=== PATIENT | male | born 1940 | race Caucasian/White ===

== ENCOUNTER 2016-09-19 08:40 | Emergency (ER) | payer MEDICARE, OTHER ==
[2016-09-19] MEDS ORDERED: METHYLPREDNISOLONE PF 125MG/VIAL IVP ONE (09:33)
[2016-09-19] MEDS ORDERED: IPRATROPIUM/ALBUTEROL (0.5MG/3MG) NEB INH ONE (09:33)
--- NOTE | 2016-09-19 09:41 | Emergency Department Record ---
History of Present Illness - General Chief Complaint: Shortness of breath Stated Complaint: SHABANA Time Seen by Provider: 09/19/16 09:28 Source: Patient Mode of Arrival: Ambulatory Limitations: No limitations - History of Present Illness Initial Comments: pt has had a prod cough and sob and congestion for 3 days. he had a houseguest earlier in the week who was sick. pt has been wheezing MD Complaint: Cough, Shortness of breath Onset/Timin -: Days(s) Severity: Mild Consistency: Intermittent Improves With: Bronchodilators, Medication Worsens With: Lying flat Known History Of: COPD Associated Symptoms: Cough, Sputum production Treatments Prior to Arrival: Bronchodilator Treatment Prior to Arrival Comment:: Sharath Monsalveair - Related Data Home Oxygen Therapy: No Home Medications Medication Instructions Recorded Confirmed Last Taken Amlodipine Besylate [Norvasc] 1 tab PO DAILY 08/17/15 09/19/16 09/19/16 Ascorbic Acid [Vitamin C] 500 mg PO DAILY 08/17/15 09/19/16 09/19/16 Aspirin [Adult Low Dose Aspirin EC] 81 mg PO DAILY 08/17/15 09/19/16 09/19/16 Cholecalciferol (Vitamin D3) 1,000 unit PO DAILY 08/17/15 09/19/16 09/19/16 [Vitamin D] Fluticasone/Salmeterol [Advair 1 puff INH BID 08/17/15 09/19/16 09/19/16 100-50 Diskus] Gluc/Tyree-MSM#1/C/Juice/Cory/Bor 2 tab PO DAILY 08/17/15 09/19/16 09/19/16 [Osteo Bi-Flex] Losartan/Hydrochlorothiazide 1 tab PO DAILY 08/17/15 09/19/16 09/19/16 [Losartan-Hctz 50-12.5 mg Tab] Meclizine HCl [Antivert] 25 mg PO TID PRN 08/17/15 09/19/16 09/19/16 Metoprolol Tartrate [Metoprolol 1 tab PO BID 08/17/15 09/19/16 09/19/16 Tartrate] Pantoprazole Sodium [Protonix] 40 mg PO BID 08/17/15 09/19/16 09/19/16 Pyridoxine HCl [Vitamin B-6] 100 mg PO DAILY 08/17/15 09/19/16 09/19/16 Rosuvastatin Calcium [Crestor] 1 tab PO QHS 08/17/15 09/19/16 09/19/16 Tadalafil [Cialis] 20 mg PO ASDIR 08/17/15 09/19/16 09/19/16 Ipratropium/Albuterol Sulfate 1 - 2 puff IH QID 09/19/16 09/19/16 09/19/16 [Combivent] Previous Rx's Medication Instructions Recorded Azithromycin [Zithromax] 250 mg PO DAILY #6 tab 09/19/16 Benzonatate [Tessalon] 1 cap PO Q8H PRN #10 cap 09/19/16 Prednisone [Prednisone 20Mg] 20 mg PO BID #8 tab 09/19/16 Allergies Allergy/AdvReac Type Severity Reaction Status Date / Time aspirin [ASPIRIN] AdvReac Intermediate ABDOMINAL Verified 09/19/16 09:12 PAIN ketorolac tromethamine AdvReac Intermediate ABDOMINAL Verified 09/19/16 09:12 [From Toradol] PAIN meperidine [MEPERIDINE] AdvReac Intermediate ABDOMINAL Verified 09/19/16 09:12 PAIN Travel Screening - Travel/Exposure Within Last 30 Days Have you traveled within the last 30 days?: No Review of Systems Reviewed: No additional complaints except as noted below Constitutional: Reports: As per HPI. Denies: Chills, Fever, Malaise, Night sweats, Weakness, Weight change Eyes: Reports: As per HPI. Denies: Eye discharge, Eye pain, Photophobia, Vision change ENT: Reports: As per HPI. Denies: Congestion, Dental pain, Ear pain, Epistaxis , Hearing loss, Throat pain Respiratory: Reports: As per HPI. Denies: Cough, Dyspnea, Hemoptysis, Stridor, Wheezes Cardiovascular: Reports: As per HPI. Denies: Arrhythmia, Chest pain, Dyspnea on exertion, Edema, Murmurs, Orthopnea, Palpitations, Paroxysmal nocturnal dyspnea, Rheumatic Fever, Syncope Endocrine: Reports: As per HPI. Denies: Fatigue, Heat or cold intolerance, Polydipsia, Polyuria Gastrointestinal: Reports: As per HPI. Denies: Abdominal pain, Constipation, Diarrhea, Hematemesis, Hematochezia, Melena, Nausea, Vomiting Genitourinary: Reports: As per HPI. Denies: Dysuria, Frequency, Hematuria, Incontinence, Retention, Testicular pain, Testicular mass, Urgency Musculoskeletal: Reports: As per HPI. Denies: Arthralgia, Back pain, Gout, Joint swelling, Myalgia, Neck pain Skin: Reports: As per HPI. Denies: Bruising, Change in color, Change in hair/ nails, Lesions, Pruritus, Rash Neurological: Reports: As per HPI. Denies: Abnormal gait, Confusion, Headache, Numbness, Paresthesias, Seizure, Tingling, Tremors, Vertigo, Weakness Psychiatric: Reports: As per HPI. Denies: Anxiety, Auditory hallucinations, Depression, Homicidal thoughts, Suicidal thoughts, Visual hallucinations Hematological/Lymphatic: Reports: As per HPI. 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 Dad- Plastic Anemia Hx Cancer: Brother/Sister Physical Exam - General General Appearance: Alert, Oriented x3, Cooperative, Mild distress - Head Head exam: Normal inspection - Eye Eye exam: Normal appearance, PERRL, EOMI Pupils: Normal accommodation - ENT ENT exam: Normal exam, Mucous membranes moist, Normal external ear exam, Normal orophraynx Ear exam: Normal external inspection. negative: External canal tenderness Nasal Exam: Normal inspection. negative: Discharge, Sinus tenderness Mouth exam: Normal external inspection, Tongue normal Teeth exam: Normal inspection. negative: Dental caries Throat exam: Normal inspection. negative: Tonsillar erythema, Tonsillar exudate - Neck Neck exam: Normal inspection, Full ROM. negative: Tenderness - Respiratory Respiratory exam: Respiratory distress, Wheezes - Cardiovascular Cardiovascular Exam: Regular rate, Normal rhythm, Normal heart sounds - GI/Abdominal GI/Abdominal exam: Soft, Normal bowel sounds. negative: Tenderness - Rectal Rectal exam: Deferred - exam: Deferred - Extremities Extremities exam: Normal inspection, Full ROM, Normal capillary refill. negative: Tenderness - Back Back exam: Reports: Normal inspection, Full ROM. Denies: Muscle spasm, Rash noted, Tenderness - Neurological Neurological exam: Alert, CN II-XII intact, Normal gait, Oriented X3 - Psychiatric Psychiatric exam: Normal affect, Normal mood - Skin Skin exam: Dry, Intact, Normal color, Warm Course Vital Signs 09/19/16 09:03 Temperature 98.3 F Pulse Rate 95 H Respiratory 20 Rate Blood Pressure 140/100 Pulse Ox 95 Medical Decision Making - Management Options MDM Management: No Additional Work-up Planned - Data Complexity MDM Data: Labs Ordered and/or Reviewed, X-Ray Ordered and/or Reviewed - Lab Data Result diagrams: 09/19/16 10:09 09/19/16 10:09 Disposition Disposition: Discharge Clinical Impression: Bronchitis Disposition: Home, Self-Care Condition: (1) Good Instructions: Acute Bronchitis (ED) Additional Instructions: follow up with family doctor. return sooner if worse. Prescriptions: Prednisone [Prednisone 20Mg] 20 mg PO BID #8 tab Benzonatate [Tessalon] 1 cap PO Q8H PRN #10 cap PRN Reason: Cough Azithromycin [Zithromax] 250 mg PO DAILY #6 tab Forms: Patient Portal Access
[2016-09-19 10:14] LABS: BASO % 0.3 % (0-6); EOS % 2.4 % (0-6); GRAN % 64.7 % (47-80); HEMATOCRIT 48.3 % (42.0-52.0); HEMOGLOBIN 15.7 gm/dl (14.0-18.0); LYMPH % 22.4 % (16-45); MEAN CELL VOLUME 89.3 fl (81-97); MEAN CORPUSCULAR HGB CONC 32.5 g/dl (32-36); MEAN PLATELET VOLUME 9.5 fl (7.4-10.4); MONO % 10.2 % (0-9); PLATELET COUNT 184 K/uL (130-400); RED BLOOD COUNT 5.41 M/uL (4.40-5.70); RED CELL DISTRIBUTION WIDTH 15.2 % (11.5-14.5); WHITE BLOOD COUNT W/O DIFF 7.8 K/uL (4.2-12.2)
[2016-09-19 10:25] LABS: BLOOD UREA NITROGEN 16 mg/dL (9-20); CREATININE 1.2 mg/dL (0.66-1.25); EST GLOMERULAR FILTRATION RATE > 60 ml/min; GLUCOSE,RANDOM 105 mg/dL (70-110)
[2016-09-19 10:29] LABS: INFLUENZA A NEGATIVE (NEGATIVE); INFLUENZA B NEGATIVE (NEGATIVE)
[2016-09-19] MEDS ORDERED: ALBUTEROL SULFATE (0.083%) 2.5 MG/3 ML NEB INH ONE (11:38)
--- NOTE | 2016-09-23 11:38 | RADIOLOGY REPORT ---
EXAM: CHEST, TWO VIEWS HISTORY: ACUTE NONPRODUCTIVE COUGH AND WHEEZING. TECHNIQUE: Two views of the chest were obtained. Comparison: Chest x-ray 08/17/15. Chest CT 03/26/15. FINDINGS: Surgical clips overlie the left mediastinum/hilum. Volume loss on the left. The right lung is clear. The cardiac silhouette is not enlarged. The diaphragm is unremarkable. Osteopenia with at least two mild compression deformities in the mid to lower thoracic spine. IMPRESSION: POSTOPERATIVE CHANGE WITHIN THE LEFT HEMITHORAX. NO ACUTE PROCESS. JOB NUMBER: [id number] [facility]
== END 2016-09-19 12:15 | disposition home or self-care (01) ==
LOC: ER 08:40
DX: J20.9 Acute bronchitis, unspecified (principal); I10 Essential (primary) hypertension; Z87.891 Personal history of nicotine dependence
CPT/HCPCS: 71020; 80048; 85025; 87400; 94640; 96374; 99284; J2930; J7613

== ENCOUNTER 2016-10-08 12:01 | Day surgery (SDC) | payer MEDICARE, OTHER ==
[~2016-10-08 12:01] MED LIST: ACETAMINOPHEN 1000MG/100 ML PREMIX IV ONE; FAMOTIDINE 20MG TABLET PO ONE; MECLIZINE 25 MG TABLET PO ONE; METOCLOPRAMIDE 10 MG TABLET PO ONE
[2016-10-08] MEDS ORDERED: SCOPOLAMINE 1 PATCH TDSY TD ONE (14:00)
[2016-10-08] MEDS ORDERED: FENTANYL PF 100MCG/2ML VIAL IV ONE (14:00)
[2016-10-08] MEDS ORDERED: LIDOCAINE 2% MDV (20MG/ML) 20ML VIAL IV ONE (14:00)
[2016-10-08] MEDS ORDERED: PROPOFOL 10 MG/ML VIAL IV ONE (14:00)
[2016-10-08] MEDS ORDERED: MIDAZOLAM HCL 2MG/2ML VIAL IV ONE (14:00)
[2016-10-08] MEDS ORDERED: BUPIVACAINE 0.25% W/EPI MPF 30ML VIAL IVP ONE (14:00)
[2016-10-08] MEDS ORDERED: ONDANSETRON HCL IV 4 MG/2 ML VIAL IVP ONE (14:00)
[2016-10-08] MEDS ORDERED: DEXAMETHASONE 4 MG/ML 1ML VIAL IVP ONE (14:00)
[2016-10-08] MEDS ORDERED: SEVOFLURANE 250 ML INH ONE (14:00)
--- NOTE | 2016-10-12 17:29 | Operative Note ---
DATE OF SURGERY: 10/08/2016 Surgeon: Juan Ramon Morgan DO Referring physician: Nik Qureshi DO PREOPERATIVE DIAGNOSES: 1. Torn medial meniscus of the right knee. 2. Chondromalacia of the right knee. POSTOPERATIVE DIAGNOSES: 1. Torn medial and lateral meniscus of the right knee. 2. Chondromalacia of the medial femoral condyle, lateral femoral condyle, trochlea and patella left knee. OPERATION: Anesthesia: General. PROCEDURE: This 76-year-old male was taken to the operating room and placed in the supine position on the operating room table. General anesthesia was induced. The right lower extremity was elevated, exsanguinated and the tourniquet inflated at 300 mmHg, arthroscopic knee-segundo applied. The right knee prepped with Hibiclens and draped in the usual sterile fashion. An inferior lateral portal was established with the 4 mm arthroscope. Initial evaluation of the joint demonstrated grade 2 chondromalacia of the patella with no gross instability of the articular cartilage of the patella, however, the trochlea demonstrated advanced grade 3 changes noted throughout the entire articulating surface. No normal articular cartilage was present in the trochlea. It was not grossly unstable and it was not further disturbed. We then directed our attention to the medial compartment and a complex horizontal cleavage tear was identified of the posterior horn of the medial meniscus with the apex being at approximately the 12 o'clock position. We then resected back to the apex of the tear and tapered in each direction to restore stability; re-probing confirmed restored stability. The patient also had a grade 3 chondromalacia of the entire weightbearing surface of the medial femoral condyle with more than 50% articular cartilage loss noted there. We then directed our attention to the intracondylar notch which was seen to be essentially normal. The lateral compartment was entered and complex tear of the lateral meniscus was present. This tear had both radial and horizontal cleavage components, with the apex of the tear being at approximately the 9:30 position, we resected to the apex of the tear and tapered in each direction. As we came anteriorly we could see there was a horizontal cleavage split and the unstable fragments of the meniscus were resected and posteriorly we resected back to about the 1 o'clock position, but this did not injure the popliteal hiatus. Degenerative changes of the meniscus were also noted with some fatty infiltration. The meniscus was probed and then found to be stable. The patient had a relatively small lesion in the center of the weightbearing surface of the lateral femoral condyle, which was less than 1 cm and had grade 2 changes, but no gross instability of this cartilage was present and it was not further disturbed. The joint was then copiously irrigated and suctioned, removing all meniscal chips from the joint and the joint was suctioned. The instruments were removed, the portals infiltrated, with 0.25% Marcaine with epinephrine, sterile dressings applied. Tourniquet and knee-segundo released, and the patient taken to the recovery room in satisfactory condition. GROSS PATHOLOGY: This patient demonstrated advanced degenerative disease of the medial femoral condyle and trochlea as described above. A complex tear of both the medial and the lateral meniscus were present as described. AVAD
== END 2016-10-08 15:35 | disposition home or self-care (01) ==
LOC: SUR 12:01
PROVIDERS: ATTEND Orthopaedic Surgery
DX: M23.221 Derangement of posterior horn of medial meniscus due to old tear or injury, right knee (principal); M23.200 Derangement of unspecified lateral meniscus due to old tear or injury, right knee; I10 Essential (primary) hypertension; E78.00 Pure hypercholesterolemia, unspecified; I48.91 Unspecified atrial fibrillation; Z85.118 Personal history of other malignant neoplasm of bronchus and lung
CPT/HCPCS: 29880; 01400; J2405; J3010

== ENCOUNTER 2019-03-06 09:21 | Day surgery (SDC) | payer MEDICARE, OTHER ==
[2019-03-06] MEDS ORDERED: LIDOCAINE 2% MDV (20MG/ML) 20ML VIAL IV ONE (09:22)
[2019-03-06] MEDS ORDERED: PROPOFOL 10 MG/ML VIAL IV ONE (09:22)
[2019-03-06] MEDS ORDERED: ONDANSETRON HCL IV 4 MG/2 ML VIAL IVP ONE (09:22)
--- NOTE | 2019-03-08 10:42 | Operative Note ---
OPERATION: COLONOSCOPY to the cecum with cold biopsy forceps polypectomy x1 and cold snare polypectomy x1. INDICATION: History of adenomatous polyps. The patient returns after 5 years for surveillance. ANESTHESIA: Intravenous sedation was administered by the department of anesthesiology and included Diprivan titrated to effect. PROCEDURE: Following informed consent from this alert individual including a discussion of the risks and benefits of the procedure and an opportunity for the patient to ask questions, the patient was in the left lateral decubitus position. A digital rectal examination was performed. No abnormalities were noted. Following this, the Olympus [id number] video colonoscope was inserted into the rectum without resistance. The rectal mucosa had a normal appearance with normal folds and distensibility. The colonoscope was advanced up through the colon to the level of the cecum without much difficulty. Throughout the bowel the mucosa appeared normal, the folds were normal, and the bowel was fairly well distensible. There were 2 polyps noted in the transverse colon. The smaller polyp measured 3 mm in size and was removed with biopsy forceps. There was a 6 mm polyp noted as well in the transverse colon removed with cold snare polypectomy and suctioned through the colonoscope into a collection trap. The cecum was defined by noting the appendiceal orifice and ileocecal valve. Overall, the colon preparation was good. From the base of the cecum, the colonoscope was then withdrawn. No additional changes were appreciated. No additional polyps were seen. Retroflexion in the rectum was endoscopically normal. The instrument was straightened and removed. The patient tolerated the procedure well and was returned to the recovery area in stable condition. IMPRESSION: Two transverse colon polyps noted. The small on measuring 3 mm in size was removed with cold biopsy forceps polypectomy and the larger polyp measuring 6 mm in size was removed with cold snare polypectomy. RECOMMENDATIONS: Further recommendations will be forthcoming pending results of pathology obtained today. Followup will also be with primary care physician, Nik Qureshi DO. As always, thank you for allowing me to participate in the care of your patient. KARLI
== END 2019-03-06 11:45 | disposition home or self-care (01) ==
LOC: HOP 09:21
PROVIDERS: ATTEND Internal Medicine Gastroenterology
DX: Z12.11 Encounter for screening for malignant neoplasm of colon (principal); Z86.010 Personal history of colon polyps; D12.3 Benign neoplasm of transverse colon; I10 Essential (primary) hypertension; E78.00 Pure hypercholesterolemia, unspecified; J44.9 Chronic obstructive pulmonary disease, unspecified; R42 Dizziness and giddiness; R06.00 Dyspnea, unspecified
CPT/HCPCS: 45380; 45385; 00811; 88305; J2405

== ENCOUNTER 2019-03-07 12:44 | Observation (INO) | payer MEDICARE, OTHER ==
[2019-03-07] MEDS ORDERED: ASPIRIN 81 MG CHEWABLE TABLET PO ONE (13:01)
[2019-03-07] MEDS ORDERED: NITROGLYCERIN 0.4MG SL TABLET #25 BTL SL PRN (13:01)
[2019-03-07] MEDS ORDERED: 0.9 % SODIUM CHLORIDE 1000ML 1,000 ML IV ONE (13:01)
--- NOTE | 2019-03-07 13:08 | Emergency Department Record ---
History of Present Illness - General Chief Complaint: Chest Pain Stated Complaint: CHEST PAIN Time Seen by Provider: 03/07/19 13:01 Source: Patient, Family () Mode of Arrival: Ambulatory Limitations: No limitations - History of Present Illness Initial Comments: Pt to the ED from home with for mid sternal CP onset 20 min [employer]. Pain is "sharp and 9 of 10", no associated SHABANA, nausea, diaphoresis. No radiation of pain ot back, neck, or arm. Hx of HTN and cholesterol on meds, no DM or tobacco use. No hx DVT/PE or risk factors. Pt states on arrival feeling better with pain at "3 of 10". No treatment prior to arrival, no meds or ASA. Pt has hx of cardiac dysrhythmia in the past but no OK or angina. No recent illness, fever, cough, N/V. Had a screening colonoscopy yesterday without issue. Colon prep was not an issue. No abdominal pains. Onset/Timin -: Minutes(s) Pain Location: Substernal Pain Radiation: None Severity: Mild Severity scale (1-10): 3 Quality: Aching, Dull Improves With: Nothing Worsens With: Nothing Treatments Prior to Arrival: None - Related Data Previous Rx's Medication Instructions Recorded Azithromycin [Zithromax] 250 mg PO DAILY #6 tablet 09/25/17 Allergies Allergy/AdvReac Type Severity Reaction Status Date / Time aspirin [ASPIRIN] AdvReac Intermediate ABDOMINAL Verified 03/07/19 12:55 PAIN ketorolac tromethamine AdvReac Intermediate ABDOMINAL Verified 03/07/19 12:55 [From Toradol] PAIN meperidine [MEPERIDINE] AdvReac Intermediate ABDOMINAL Verified 03/07/19 12:55 PAIN Travel Screening - Travel/Exposure Within Last 30 Days Have you traveled within the last 30 days?: No Review of Systems Constitutional: Denies: Chills, Fever, Weakness Eyes: Denies: Eye pain, Photophobia, Vision change ENT: Denies: Congestion, Throat pain Respiratory: Denies: Cough, Dyspnea, Wheezes Cardiovascular: Reports: As per HPI, Chest pain. Denies: Arrhythmia, Palpitations, Syncope Endocrine: Denies: Fatigue, Polydipsia, Polyuria Gastrointestinal: Denies: Abdominal pain, Diarrhea, Nausea, Vomiting Genitourinary: Denies: Dysuria, Hematuria Musculoskeletal: Denies: Arthralgia, Back pain, Neck pain Skin: Denies: Bruising, Rash Neurological: Denies: Headache, Tingling, Weakness Psychiatric: Denies: Anxiety, Suicidal thoughts Hematological/Lymphatic: Denies: Anemia, Blood Clots Past Medical History - SOCIAL HISTORY Smoking Status: Former smoker Alcohol Use: None Drug Use: None - RESPIRATORY Hx Respiratory Disorders: Yes Hx Bronchitis: Yes Hx COPD: Yes (well controlled with inhalers) Hx Dyspnea: Yes Hx Pneumonia: Yes Comment:: Lung CA squamous cell 2012 - CARDIOVASCULAR Hx Cardio Disorders: Yes Hx Abnormal EKG: Yes Hx Hypertension: Yes (on meds good control) Hx Irregular Heartbeat: Yes (a-fib during lung surgery) - NEURO Hx Neuro Disorders: Yes 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) Hx Neuropathy: Yes (feet and legs) - GI Hx GI Disorders: Yes Hx GI Bleed: Yes (while on xaralto) Hx Reflux: Yes - Hx Genitourinary Disorders: Yes Hx Prostate Problems: Yes (TURP enlarged prostate) - ENDOCRINE Hx Endocrine Disorders: No Hx Diabetes: No Hx Thyroid Disease: No - MUSCULOSKELETAL Hx Musculoskeletal Disorders: Yes Hx Arthritis: Yes Comment:: right knee pain - PSYCH Hx Psych Problems: No - HEMATOLOGY/ONCOLOGY Hx Hematology/Oncology Disorders: Yes Hx Anemia: No Hx Blood Disorders: No Hx Bruising: No Hx Cancer: No (lung) Hx Chemotherapy: Yes (2012) Hx Radiation Therapy: No (denies) Hx Blood Transfusions: Yes Family Medical History Any Significant Family History?: Yes Family Hx Comment (NOT TO BE USED IN PLACE OF ITEMS BELOW): Mother- CHF. Dad- Plastic Anemia Hx Cancer: Brother/Sister Physical Exam - General General Appearance: Alert, Oriented x3, Cooperative, Mild distress - Head Head exam: Normal inspection - Eye Eye exam: Normal appearance, PERRL - ENT ENT exam: Normal exam, Mucous membranes moist, Normal external ear exam, Normal orophraynx, TM's normal bilaterally - Neck Neck exam: Normal inspection, Full ROM. negative: Tenderness - Respiratory Respiratory exam: Normal lung sounds bilaterally. negative: Respiratory distress - Cardiovascular Cardiovascular Exam: Regular rate, Normal rhythm, Normal heart sounds. negative: Diastolic murmur, Systolic murmur Peripheral Pulses: 2+: Radial (R), Radial (L) - GI/Abdominal GI/Abdominal exam: Soft, Normal bowel sounds. negative: Distended, Guarding, Hypoactive bowel sounds, Rebound, Rigid, Tenderness - Extremities Extremities exam: Normal inspection, Full ROM. negative: Calf tenderness, No rmal capillary refill, Pedal edema, Tenderness - Back Back exam: Reports: Normal inspection. Denies: Paraspinal tenderness, Vertebral tenderness - Neurological Neurological exam: Alert, Normal gait, Oriented X3 - Psychiatric Psychiatric exam: Normal affect, Normal mood - Skin Skin exam: Normal color. negative: Rash Course Vital Signs 03/07/19 12:54 Temperature 97.7 F Pulse Rate 79 Respiratory 22 Rate Blood Pressure 144/103 Pulse Ox 100 - Reevaluation(s) Reevaluation #1: 03/07/19 13:07 IV, O2, monitor. ASA and NTG in ED. Labs, Xray, and EKG. Pt and at bedside reassured with EKG results and we discussed further eval with labs. Procedures - EKG Initial Date: 03/07/19 Time: 12:44 EKG: No Acute Changes, Normal EKG Medical Decision Making - Lab Data Result diagrams: 03/07/19 12:55 03/07/19 12:55 Disposition Disposition: Admit Clinical Impression: Chest pain Disposition: Still a Patient at [facility] Decision to Admit: Admit from ER Decision to Admit Date: 03/07/19 Decision to Admit Time: 14:37 Condition: (3) Guarded Forms: Patient Portal Access Quality - Quality Measures Quality Measures: N/A - Blood Pressure Screening Does Patient Have Any of the Following: No, Active Dx of HTN Blood Pressure Classification: Hypertensive Reading Systolic Measurement: 144 Diastolic Measurement: 103 Screening for High Blood Pressure: Patient Exclusion, Hx of HTN [G9744]
[2019-03-07 13:19] LABS: ABSOLUTE NEUTROPHIL COUNT 3.84; BASO % 0.2 % (0-6); EOS % 3.5 % (0-6); GRAN % 63.7 % (47-80); HEMATOCRIT 44.8 % (42.0-52.0); HEMOGLOBIN 14.2 gm/dl (14.0-18.0); MEAN CELL VOLUME 90.7 fl (81-97); MEAN CORPUSCULAR HEMOGLOBIN 28.7 pg (27-33); MEAN CORPUSCULAR HGB CONC 31.7 g/dl (32-36); MEAN PLATELET VOLUME 9.2 fl (7.4-10.4); MONO % 6.6 % (0-9); PLATELET COUNT 288 K/uL (130-400); RED BLOOD COUNT 4.94 M/uL (4.40-5.70); RED CELL DISTRIBUTION WIDTH 16.6 % (11.5-14.5)
[2019-03-07 13:30] LABS: BLOOD UREA NITROGEN 15 mg/dL (8-23); CREATININE 1.2 mg/dL (0.7-1.2); EST GLOMERULAR FILTRATION RATE > 60 mL/min
[2019-03-07 13:31] LABS: TOTAL PROTEIN 6.9 g/dL (6.6-8.7)
[2019-03-07 13:33] LABS: GLUCOSE,RANDOM 94 mg/dL (74-109)
[2019-03-07 13:35] LABS: ALT/SGPT 16 U/L (<41); AST/SGOT 23 U/L (10.0-50.0); PARTIAL THROMBOPLASTIN TIME 28.5 SECONDS (24.5-39.1); PROTHROMBIN TIME (PATIENT) 10.5 SECONDS (9.5-12.1)
[2019-03-07 13:36] LABS: ALB/GLOB RATIO 1.6 (1.1-1.8); ALBUMIN 4.2 g/dL (4.0-5.0); ALKALINE PHOSPHATASE 82 U/L (40-129)
--- NOTE | 2019-03-07 15:31 | History & Physical ---
History of Present Illness - Date of Service Date of Service for History & Physical: 03/08/19 - History of Present Illness History of Present Illness: 79 y/o male presented to ED with midsternal chest pain 20 minutes [employer]. Pain was sharp, 9/10. No associated SHABANA, nausea, or diaphoresis. Pain did not radiate. Patients pain improved at the time of arrival to 310 without any treatment. Patient does have hx of cardiac dysrhythmia but no hx of PR or angina. Denies any recent illness. Did have a screening colonoscopy yesterday without incident, tolerated prep without issue. PMH includes former smoker, bronchitis, COPD, pneumonia, squamous cell lung ca 2012, HTN, a-fib during lung surgery, CVA, neuropathy, GI bleed while on Xarelto, GERD, enlarged prostate s/p TURP, OA While in ED ASA and Nitro given with complete resolution of chest pain. EKG with no acute changes from previous. Troponin x1 neg. D-dimer normal. Admitted for observation due to advanced age, chest pain. Last cardiolyte stress test done 03/08/18 and was normal. 03/07/19 1530- sitting in chair comfortably, no reports of chest pain at this time. Reports no recent physical activity prior to the onset of chest pain, was baking banana bread at the time. PCP: Dr Muro Telephone Claims Representative: Dr. Huston Travel Screening - Travel/Exposure Within Last 30 Days Have you traveled within the last 30 days?: No Review of Systems Constitutional: Denies: Chills, Fever, Weakness Eyes: Denies: Eye pain, Photophobia, Vision change ENT: Denies: Congestion, Throat pain Respiratory: Denies: Cough, Dyspnea, Wheezes Cardiovascular: Reports: As per HPI, Chest pain. Denies: Arrhythmia, Palpitations, Syncope Endocrine: Denies: Fatigue, Polydipsia, Polyuria Gastrointestinal: Denies: Abdominal pain, Diarrhea, Nausea, Vomiting Genitourinary: Denies: Dysuria, Hematuria Musculoskeletal: Denies: Arthralgia, Back pain, Neck pain Skin: Denies: Bruising, Rash Neurological: Denies: Headache, Tingling, Weakness Psychiatric: Denies: Anxiety, Suicidal thoughts Hematological/Lymphatic: Denies: Anemia, Blood Clots Past Medical History - SOCIAL HISTORY Smoking Status: Former smoker Alcohol Use: None Drug Use: None - RESPIRATORY Hx Respiratory Disorders: Yes Hx Bronchitis: Yes Hx COPD: Yes (well controlled with inhalers) Hx Dyspnea: Yes Hx Pneumonia: Yes Comment:: Lung CA squamous cell 2012 - CARDIOVASCULAR Hx Cardio Disorders: Yes Hx Abnormal EKG: Yes Hx Hypertension: Yes (on meds good control) Hx Irregular Heartbeat: Yes (a-fib during lung surgery) - NEURO Hx Neuro Disorders: Yes 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) Hx Neuropathy: Yes (feet and legs) - GI Hx GI Disorders: Yes Hx GI Bleed: Yes (while on xaralto) Hx Reflux: Yes - Hx Genitourinary Disorders: Yes Hx Prostate Problems: Yes (TURP enlarged prostate) - ENDOCRINE Hx Endocrine Disorders: No Hx Diabetes: No Hx Thyroid Disease: No - MUSCULOSKELETAL Hx Musculoskeletal Disorders: Yes Hx Arthritis: Yes Comment:: right knee pain - PSYCH Hx Psych Problems: No - HEMATOLOGY/ONCOLOGY Hx Hematology/Oncology Disorders: Yes Hx Anemia: No Hx Blood Disorders: No Hx Bruising: No Hx Cancer: No (lung) Hx Chemotherapy: Yes (2012) Hx Radiation Therapy: No (denies) Hx Blood Transfusions: Yes Family Medical History Any Significant Family History?: Yes Family Hx Comment (NOT TO BE USED IN PLACE OF ITEMS BELOW): Mother- CHF. Dad- Plastic Anemia Hx Cancer: Brother/Sister H&P Meds/Allergies - Allergies Allergies: Allergies Allergy/AdvReac Type Severity Reaction Status Date / Time aspirin [ASPIRIN] AdvReac Intermediate ABDOMINAL Verified 03/07/19 12:55 PAIN ketorolac tromethamine AdvReac Intermediate ABDOMINAL Verified 03/07/19 12:55 [From Toradol] PAIN meperidine [MEPERIDINE] AdvReac Intermediate ABDOMINAL Verified 03/07/19 12:55 PAIN - Home Medications Previous Rx's Medication Instructions Recorded Azithromycin [Zithromax] 250 mg PO DAILY #6 tablet 09/25/17 Nitroglycerin 0.4MG [Nitrostat 0.4 mg SL Q5MIN PRN #1 bottle 03/08/19 0.4MG] - Active Medications Active Medications: Current Medications Sodium Chloride () 1,000 mls @ 15 mls/hr IV .Q24H ONE Stop: 03/08/19 13:00 Last Admin: 03/07/19 13:29 Dose: 15 mls/hr Documented by: Nitroglycerin (Nitrostat 0.4mg) 0.4 mg SL Q5MIN PRN PRN Reason: CHEST PAIN Last Admin: 03/07/19 13:05 Dose: 0.4 mg Documented by: Physical Exam - Vital Signs Vital Signs: Vital Signs - Last 24 Hrs Temp Pulse Pulse Resp BP BP Pulse Ox 03/07/19 14:47 62 18 104/71 96 03/07/19 13:12 85 18 109/72 94 L 03/07/19 13:05 80 18 135/82 94 L 03/07/19 12:54 97.7 F 79 22 144/103 100 - General General Appearance: Alert, Oriented x3, Cooperative Limitations: No limitations - Head Head exam: Normal inspection - Eye Eye exam: Normal appearance, PERRL - ENT ENT exam: Normal exam, Mucous membranes moist, Normal external ear exam, Normal orophraynx, TM's normal bilaterally - Neck Neck exam: Normal inspection, Full ROM. negative: Tenderness - Respiratory Respiratory exam: Normal lung sounds bilaterally. negative: Respiratory distress - Cardiovascular Cardiovascular Exam: Regular rate, Normal rhythm, Normal heart sounds. negat yoan: Diastolic murmur, Systolic murmur Peripheral Pulses: 2+: Radial (R), Radial (L) - GI/Abdominal GI/Abdominal exam: Soft, Normal bowel sounds. negative: Distended, Guarding, Hypoactive bowel sounds, Rebound, Rigid, Tenderness - Extremities Extremities exam: Normal inspection, Full ROM. negative: Calf tenderness, Normal capillary refill, Pedal edema, Tenderness - Back Back exam: Reports: Normal inspection. Denies: Paraspinal tenderness, Vertebral tenderness - Neurological Neurological exam: Alert, Normal gait, Oriented X3 - Psychiatric Psychiatric exam: Normal affect, Normal mood - Skin Skin exam: Normal color. negative: Rash Results - Labs Result Diagrams: 03/08/19 05:00 03/08/19 05:00 Labs Last 24 Hours: Laboratory Results - last 24 hr 03/07/19 03/07/19 03/07/19 12:55 12:55 12:55 WBC 6.0 RBC 4.94 Hgb 14.2 Hct 44.8 MCV 90.7 MCH 28.7 MCHC 31.7 L RDW 16.6 H Plt Count 288 MPV 9.2 Gran % 63.7 Lymphocytes % 26.0 Monocytes % 6.6 Eosinophils % 3.5 Basophils % 0.2 Absolute Neutrophils 3.84 PT 10.5 INR 1.0 APTT 28.5 D-Dimer 0.47 Sodium 141 Potassium 4.4 Chloride 103 Carbon Dioxide 28.0 Anion Gap 10.0 BUN 15 Creatinine 1.2 Estimated GFR > 60 Random Glucose 94 Calcium 9.3 Total Bilirubin 0.30 AST 23 ALT 16 Alkaline Phosphatase 82 Troponin T < 0.010 NT-Pro-B Natriuret Pep 100.30 Total Protein 6.9 Albumin 4.2 Globulin 2.7 Albumin/Globulin Ratio 1.6 VTE H&P Assessment - Risk for VTE Risk for VTE: Yes Risk Level: Low Risk Assessment Date: 03/07/19 Risk Assessment Time: 15:31 VTE Orders Placed or Will Be Placed: Yes AMI H&P Plan - EKG Initial Date: 03/07/19 Time: 12:44 EKG: No Acute Changes, Normal EKG Plan - Detailed Diagnosis and Plan (1) Chest pain Current Visit: Yes Status: Acute Base Code: R07.9 - CHEST PAIN, UNSPECIFIED Comment: 03/07/19 - midsternal chest pain, non radiating, relieved with ASA and nitro in ED - Hx a-fib during surgery 2012, HTN - Troponin #1 neg - EKG in ED without acute changes from previous (2) HTN (hypertension) Current Visit: Yes Status: Acute Base Code: I10 - ESSENTIAL (PRIMARY) HYPERTENSION Comment: 03/07/19 - BP elevated in ED (3) DVT prophylaxis Current Visit: Yes Status: Acute Base Code: Z29.9 - ENCOUNTER FOR P ROPHYLACTIC MEASURES, UNSPECIFIED Comment: 03/07/19 - contraindicated 2/2 hx GI bleed with Xarelto - Nursing to encourage frequent ambulation (4) Full code status Current Visit: Yes Status: Acute Base Code: Z78.9 - OTHER SPECIFIED HEALTH STATUS
[2019-03-07] MEDS: IPRATROPIUM/ALBUTEROL (0.5MG/3MG) NEB INH SCH ×3 (16:42→21:24)
[2019-03-07] MEDS: PANTOPRAZOLE SODIUM 40 MG TABLET PO SCH (17:25)
[2019-03-07] MEDS ORDERED: ATORVASTATIN 20 MG TABLET PO SCH (22:00)
[2019-03-07] MEDS ORDERED: METOPROLOL TART 50 MG TABLET PO SCH (22:00)
[2019-03-08] MEDS: IPRATROPIUM/ALBUTEROL (0.5MG/3MG) NEB INH SCH (05:09)
[2019-03-08 05:13] LABS: ABSOLUTE NEUTROPHIL COUNT 3.96; BASO % 0.3 % (0-6); EOS % 4.3 % (0-6); HEMOGLOBIN 13.1 gm/dl (14.0-18.0); LYMPH % 24.5 % (16-45); MEAN CELL VOLUME 91.1 fl (81-97); MEAN CORPUSCULAR HEMOGLOBIN 28.4 pg (27-33); MEAN CORPUSCULAR HGB CONC 31.2 g/dl (32-36); MONO % 7.9 % (0-9); PLATELET COUNT 217 K/uL (130-400); RED BLOOD COUNT 4.61 M/uL (4.40-5.70); RED CELL DISTRIBUTION WIDTH 16.4 % (11.5-14.5); WHITE BLOOD COUNT W/O DIFF 6.3 K/uL (4.2-12.2)
[2019-03-08 05:25] LABS: BLOOD UREA NITROGEN 19 mg/dL (8-23); CREATININE 1.2 mg/dL (0.7-1.2); EST GLOMERULAR FILTRATION RATE > 60 mL/min; GLUCOSE,RANDOM 97 mg/dL (74-109)
[2019-03-08] MEDS: PANTOPRAZOLE SODIUM 40 MG TABLET PO SCH (06:28)
--- NOTE | 2019-03-08 07:56 | RADIOLOGY REPORT ---
EXAM: CHEST, TWO VIEWS HISTORY: PATIENT HAS CHEST PAIN. TECHNIQUE: Two views of the chest are provided along with comparison CT scan of the chest dated 10/19/18 and chest x-ray dated 09/25/17. FINDINGS: The cardiac silhouette is within normal limits for size and contour. Tortuosity of the thoracic aorta is noted. Of note is that there is a density identified within the right paratracheal region, however, I suspect that this is likely normal tissue which is superimposed due to the patient rotation. There is no radiographic evidence of a focal infiltrate or pleural effusion. No pneumothorax is noted. Postoperative changes are identified in the region of the left hilum. Compression deformity of the lower thoracic vertebral body is unchanged with respect to the prior examinations. IMPRESSION: NO RADIOGRAPHIC EVIDENCE OF AN ACUTE INTRATHORACIC PROCESS. JOB NUMBER: [id number] [facility]
--- NOTE | 2019-03-08 08:26 | Discharge Summary ---
Providers Discharge Summary Date: 03/08/19 Date of admission: 03/07/19 15:20 Attending physician: ASMITA VÁSQUEZ Primary care physician: SESAR DAVIDSON D.O. Physical Exam - Vital Signs Vital Signs: Vital Signs - Last 24 Hrs Temp Pulse Pulse Pulse Resp BP BP 03/08/19 07:48 97.9 F 73 16 171/91 03/08/19 05:09 85 18 03/08/19 05:00 97.9 F 76 18 167/82 03/08/19 00:25 97.9 F 72 18 124/78 03/07/19 21:24 81 16 03/07/19 21:00 68 16 03/07/19 20:16 98.1 F 68 16 138/67 03/07/19 17:56 98.5 F 73 18 132/74 03/07/19 17:01 77 16 03/07/19 15:30 98.6 F 68 16 173/82 03/07/19 14:47 62 18 104/71 03/07/19 13:12 85 18 109/72 03/07/19 13:05 80 18 135/82 03/07/19 12:54 97.7 F 79 22 144/103 Pulse Ox 03/08/19 07:48 98 03/08/19 05:09 98 03/08/19 05:00 98 03/08/19 00:25 96 03/07/19 21:24 03/07/19 21:00 03/07/19 20:16 95 03/07/19 17:56 98 03/07/19 17:01 03/07/19 15:30 99 03/07/19 14:47 96 03/07/19 13:12 94 L 03/07/19 13:05 94 L 03/07/19 12:54 100 - General General Appearance: Alert, Oriented x3, Cooperative Limitations: No limitations - Head Head exam: Normal inspection - Eye Eye exam: Normal appearance, PERRL - ENT ENT exam: Normal exam, Mucous membranes moist, Normal external ear exam, Normal orophraynx, TM's normal bilaterally - Neck Neck exam: Normal inspection, Full ROM. negative: Tenderness - Respiratory Respiratory exam: Normal lung sounds bilaterally. negative: Respiratory distress - Cardiovascular Cardiovascular Exam: Regular rate, Normal rhythm, Normal heart sounds. negative: Diastolic murmur, Systolic murmur Peripheral Pulses: 2+: Radial (R), Radial (L) - GI/Abdominal GI/Abdominal exam: Soft, Normal bowel sounds. negative: Distended, Guarding, Hypoactive bowel sounds, Rebound, Rigid, Tenderness - Extremities Extremities exam: Normal inspection, Full ROM. negative: Calf tenderness, Normal capillary refill, Pedal edema, Tenderness - Back Back exam: Reports: Normal inspection. Denies: Paraspinal tenderness, Vertebral tenderness - Neurological Neurological exam: Alert, Normal gait, Oriented X3 - Psychiatric Psychiatric exam: Normal affect, Normal mood - Skin Skin exam: Normal color. negative: Rash Hospitalization - Hospitalization Admission Diagnosis: Chest Pain - Problem List/Discharge Diagnosis (1) Chest pain Current Visit: Yes Status: Acute Base Code: R07.9 - CHEST PAIN, UNSPECIFIED Comment: 03/08/19 - midsternal chest pain, non radiating, relieved with ASA and nitro in ED - Hx a-fib during surgery 2012, HTN - Troponin #1, #2 neg - EKG in ED without acute changes from previous - Tele has remained NSR - No further complaints of chest pain - Cardiolyte stress 03/08/18, established with cardiology - Chest pain likely reflux vs. esophogeal spasm (2) HTN (hypertension) Current Visit: Yes Status: Acute Base Code: I10 - ESSENTIAL (PRIMARY) HYPERTENSION Comment: 03/08/19 - BP elevated in ED, has trended to normal after scheduled antihypertensives (3) DVT prophylaxis Current Visit: Yes Status: Acute Base Code: Z29.9 - ENCOUNTER FOR PROPHYLACTIC MEASURES, UNSPECIFIED Comment: 03/08/19 - contraindicated 2/2 hx GI bleed with Xarelto - Nursing to encourage frequent ambulation (4) Full code status Current Visit: Yes Status: Acute Base Code: Z78.9 - OTHER SPECIFIED HEALTH STATUS - Hospitalization Course Disposition: Home, Self-Care Hospital Course: 79 y/o male presented to ED with midsternal chest pain 20 minutes [employer]. Pain was sharp, 9/10. No associated SHABANA, nausea, or diaphoresis. Pain did not radiate. Patients pain improved at the time of arrival to 3/10 without any treatment. Patient does have hx of cardiac dysrhythmia but no hx of NE or angina. Denies any recent illness. Did have a screening colonoscopy yesterday without incident, tolerated prep without issue. PMH includes former smoker, bronchitis, COPD, pneumonia, squamous cell lung ca 2012, HTN, a-fib during lung surgery, CVA, neuropathy, GI bleed while on Xarelto, GERD, enlarged prostate s/p TURP, OA While in ED ASA and Nitro given with complete resolution of chest pain. EKG with no acute changes from previous. Troponin x1 neg. D-dimer normal. Admitted for observation due to advanced age, chest pain. Last cardiolyte stress test done 03/08/18 and was normal. 03/07/19 1530- sitting in chair comfortably, no reports of chest pain at this time. Reports no recent physical activity prior to the onset of chest pain, was baking banana bread at the time. 03/08/19- Hospital course unremarkable. No further chest pain, troponin x2 negative. Did have cardiolyte stress 1 year ago and was normal and is established with cardiology in the community, next follow up visit scheduled next month. Chest pain could likely have been due to reflux vs. esophageal spasm after initiating PO intake after colonoscopy. Advised to return if chest pain occurs again. Will prescribe Nitro SL for any further episodes of chest pain. PCP: Dr Muro Hhas: Dr. Huston Procedures: Imaging and X-Rays 03/07/19 13:01 CHEST 2 VIEWS [RAD] Stat Cardiology Procedures 03/07/19 13:01 EKG NOW 03/07/19 15:56 [employer] .Continuous EKG QDX2@0600 Abnormal Labs: Abnormal Lab Results 03/07/19 03/08/19 03/08/19 Range/Units 12:55 05:00 05:00 Hgb 13.1 L (14.0-18.0) gm/dl MCHC 31.7 L 31.2 L (32-36) g/dl RDW 16.6 H 16.4 H (11.5-14.5) % Calcium 8.7 L (8.8-10.2) mg/dL Condition at Discharge: (3) Guarded Discharge Medications - Discharge Medications Prescriptions: Nitroglycerin 0.4MG [Nitrostat 0.4MG] 0.4 mg SL Q5MIN PRN #1 bottle PRN Reason: Chest Pain Home Medications: Ambulatory Orders Amlodipine Besylate [Norvasc] 1 tab PO DAILY 08/17/15 [Last Taken 03/07/19] Ascorbic Acid [Vitamin C] 500 mg PO DAILY 08/17/15 [Last Taken 03/07/19] Aspirin [Adult Low Dose Aspirin EC] 81 mg PO DAILY 08/17/15 [Last Taken 03/07/19] Cholecalciferol (Vitamin D3) [Vitamin D3] 1,000 unit PO DAILY 08/17/15 [Last Taken 03/07/19] Fluticasone Propion/Salmeterol [Advair 100-50 Diskus] 1 puff INH BID 08/17/15 [Last Taken 03/07/19] Glucosam/Tyree-Msm1/C/Juice/Bosw [Osteo Bi-Flex] 2 tab PO DAILY 08/17/15 [Last Taken 03/07/19] Losartan/Hydrochlorothiazide [Losartan-Hctz 50-12.5 mg Tab] 1 tab PO DAILY 08/17/15 [Last Taken 03/07/19] Meclizine HCl [Antivert] 25 mg PO TID PRN 08/17/15 [Last Taken 03/07/19] Metoprolol Tartrate 1 tab PO BID 08/17/15 [Last Taken 03/07/19] Pantoprazole Sodium [Protonix] 40 mg PO BID 08/17/15 [Last Taken 03/07/19] Pyridoxine HCl [Vitamin B-6] 100 mg PO DAILY 08/17/15 [Last Taken 03/07/19] Rosuvastatin Calcium [Crestor] 1 tab PO QHS 08/17/15 [Last Taken 03/07/19] Ipratropium/Albuterol Sulfate [Combivent] 1 - 2 puff IH QID 09/19/16 [Last Taken 03/07/19] Azithromycin [Zithromax] 250 mg PO DAILY #6 tablet 09/25/17 [Last Taken Unknown] Nitroglycerin 0.4MG [Nitrostat 0.4MG] 0.4 mg SL Q5MIN PRN #1 bottle 03/08/19 [Last Taken Unknown] Discharge Plan - Discharge Instructions Activity at Discharge: Increase Activity as Tolerated Diet at Discharge: Advance to Usual Diet Additional Instructions: Follow up with Dr Huston as scheduled next month New prescription for Nitro given for any further episodes of chest pain Quality Measures - Quality Measures Quality Measures: Advance Directives, Documentation of Current Medications in Medical Record, Elder Maltreatment Screen and Follow-Up Plan, Screening for High Blood Pressure and F/U Documented - Current Medications Quality Measure: Measure #130: Documentation of Current Medications Documentation of Current Medications: <Current Medications Documented/Reviewed> [Z0468] - Blood Pressure Screening Quality Measure: Screening for High Blood Pressure and Follow-Up Documented Does Patient Have Any of the Following: Active Dx of HTN Blood Pressure Classification: Hypertensive Reading Systolic Measurement: 144 Diastolic Measurement: 103 Screening for High Blood Pressure: Patient Exclusion, Hx of HTN [G9744] - Advance Directives Quality Measure: Measure #47: Care Plan Advance Directives Established: No Advance Directives Information Provided To Patient: Yes Advance Directives on File: No Living Will: No Power of Head Of Business Development: Yes Power of Head Of Business Development Name: TRISTA WILKINSON Advance Care Planning: <Care Plan/Decision Maker Documented; Discussed & Documented> [1123F] - Elder Abuse Suspicion Index Screening: Elder Abuse Suspicion Index Screening Rely on people for bathing, dressing, shopping, banking, etc: No Prevented from getting food, clothes, medication, etc: No Made to feel shamed or threatened by someone: No Forced to sign papers or use money against will: No Feel afraid, touched in ways not wanted or hurt physically: No Poor eye contact, withdrawn, malnourished, cuts or bruises: No Screening Result: Negative result EASI Reference Information: Pau DE LA GARZA, Jae C, Schuyler D, Adryan Butterfield.Development and validation of a tool to assist physicians identification of elder abuse: The Elder Abuse Suspicion Index (EASI ). Journal of Elder Abuse and Neglect, 2008; 20 (3): 276-300. - Elder Maltreatment Screen Quality Measures: Elder Maltreatment Screen and Follow-Up Plan Elder Maltreatment Screen: <Negative, No Follow-Up Plan Required> [G4660]
[2019-03-08] MEDS ORDERED: LOSARTAN POTASSIUM 25 MG TABLET PO SCH (10:00)
[2019-03-08] MEDS ORDERED: ASPIRIN 81 MG TABEC PO SCH (10:00)
[2019-03-08] MEDS ORDERED: BREO (FLUTICASONE/VILANTEROL) 100MCG/25MCG INHALER INH SCH (10:00)
[2019-03-08] MEDS ORDERED: HYDROCHLOROTHIAZIDE 12.5 MG CAPSULE PO SCH (10:00)
[2019-03-08] MEDS ORDERED: AMLODIPINE BESYLATE 5MG TAB PO SCH (10:00)
== END 2019-03-08 09:10 | disposition home or self-care (01) ==
LOC: ER 12:44 → MEDSURG 15:20
PROVIDERS: ADMIT Internal Medicine; ATTEND Internal Medicine
DX: R07.9 Chest pain, unspecified (principal); J44.9 Chronic obstructive pulmonary disease, unspecified; I10 Essential (primary) hypertension; E78.00 Pure hypercholesterolemia, unspecified; G62.9 Polyneuropathy, unspecified; K21.9 Gastro-esophageal reflux disease without esophagitis; M19.90 Unspecified osteoarthritis, unspecified site; Z87.891 Personal history of nicotine dependence; Z85.118 Personal history of other malignant neoplasm of bronchus and lung; Z86.73 Personal history of transient ischemic attack (TIA), and cerebral infarction without residual deficits; N40.0 Benign prostatic hyperplasia without lower urinary tract symptoms
CPT/HCPCS: 71046; 80048; 80053; 83880; 84484; 85025; 85379; 85610; 85730; 93005; 93010; 94640; 99220; 99285

== ENCOUNTER 2019-08-01 22:37 | Emergency (ER) | payer MEDICARE, OTHER ==
[2019-08-01] MEDS ORDERED: ONDANSETRON HCL IV 4 MG/2 ML VIAL IVP ONE (22:48)
[2019-08-01] MEDS ORDERED: MORPHINE SULFATE 5 MG/ML VIAL IVP ONE (22:48)
--- NOTE | 2019-08-01 22:53 | Emergency Department Record ---
History of Present Illness - General Chief Complaint: Abdominal Pain Stated Complaint: ABD PAIN/NAUSEA Time Seen by Provider: 08/01/19 22:43 Source: Patient Mode of Arrival: Ambulatory Limitations: No limitations - History of Present Illness Initial Comments: 79 yo male presents to ED for evaluation of epigastric abdominal pain symptoms that began approximately 4 hours ago. Patient reports associated nausea, denies vomiting, fevers, chills, cough, urinary symptoms, or change in bowel movements. Patient denies history of similar symptoms previously, does report previous history of previous appendectomy. Patient also reports history of bleeding u lcer in 2012, reports he was asymptomatic at the time, reports that he does take Protonix daily since that time. MD Complaint: Abdominal pain Onset/Timin -: Hour(s) Location: Epigastric Radiation: LUQ, RUQ Severity: Severe Quality: Aching Consistency: Constant Improves With: Nothing Worsens With: Nothing Associated Symptoms: Nausea - Related Data Previous Rx's Medication Instructions Recorded Nitroglycerin 0.4MG [Nitrostat 0.4 mg SL Q5MIN PRN #1 bottle 03/08/19 0.4MG] Allergies Allergy/AdvReac Type Severity Reaction Status Date / Time aspirin [ASPIRIN] AdvReac Intermediate ABDOMINAL Verified 03/07/19 12:55 PAIN ketorolac tromethamine AdvReac Intermediate ABDOMINAL Verified 03/07/19 12:55 [From Toradol] PAIN meperidine [MEPERIDINE] AdvReac Intermediate ABDOMINAL Verified 03/07/19 12:55 PAIN Review of Systems Constitutional: Denies: Chills, Fever, Malaise, Night sweats Eyes: Denies: Eye discharge, Eye pain ENT: Denies: Congestion, Ear pain, Epistaxis Respiratory: Denies: Cough, Dyspnea Cardiovascular: Denies: Chest pain, Dyspnea on exertion Endocrine: Denies: Fatigue, Heat or cold intolerance Gastrointestinal: Reports: Abdominal pain, Nausea. Denies: Constipation, Vomiting Genitourinary: Denies: Incontinence, Retention Musculoskeletal: Denies: Arthralgia, Back pain Skin: Denies: Bruising, Change in color Neurological: Denies: Abnormal gait, Confusion, Headache, Tingling, Tremors Psychiatric: Denies: Anxiety Hematological/Lymphatic: Denies: Anemia, Blood Clots Past Medical History - SOCIAL HISTORY Smoking Status: Former smoker Drug Use: None - RESPIRATORY Hx Respiratory Disorders: Yes Hx Bronchitis: Yes Hx COPD: Yes (well controlled with inhalers) Hx Dyspnea: Yes Hx Pneumonia: Yes Comment:: Lung CA squamous cell 2012 - CARDIOVASCULAR Hx Cardio Disorders: Yes Hx Abnormal EKG: Yes Hx Hypertension: Yes (on meds good control) Hx Irregular Heartbeat: Yes (a-fib during lung surgery) - NEURO Hx Neuro Disorders: Yes 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) Hx Neuropathy: Yes (feet and legs) - GI Hx GI Disorders: Yes Hx GI Bleed: Yes (while on xaralto) Hx Reflux: Yes - Hx Genitourinary Disorders: Yes Hx Prostate Problems: Yes (TURP enlarged prostate) - ENDOCRINE Hx Endocrine Disorders: No Hx Diabetes: No Hx Thyroid Disease: No - MUSCULOSKELETAL Hx Musculoskeletal Disorders: Yes Hx Arthritis: Yes Comment:: right knee pain - PSYCH Hx Psych Problems: No - HEMATOLOGY/ONCOLOGY Hx Hematology/Oncology Disorders: Yes Hx Anemia: No Hx Blood Disorders: No Hx Bruising: No Hx Cancer: No (lung) Hx Chemotherapy: Yes (2012) Hx Radiation Therapy: No (denies) Hx Blood Transfusions: Yes Family Medical History Family Hx Comment (NOT TO BE USED IN PLACE OF ITEMS BELOW): Mother- CHF. Dad- Plastic Anemia Hx Cancer: Brother/Sister Physical Exam - General General Appearance: Alert, Oriented x3, Cooperative, Moderate distress Limitations: No limitations - Head Head exam: Atraumatic, Normocephalic, Normal inspection Head exam detail: negative: Abrasion, Contusion, Valentin's sign, General tenderness, Hematoma, Laceration - Eye Eye exam: Normal appearance. negative: Conjunctival injection, Periorbital swelling, Periorbital tenderness, Scleral icterus - ENT Ear exam: negative: Auricular hematoma, Auricular trauma Nasal Exam: negative: Active bleeding, Discharge, Dried blood, Foreign body Mouth exam: negative: Drooling, Laceration, Muffled voice, Tongue elevation - Neck Neck exam: Normal inspection. negative: Meningismus, Tenderness - Respiratory Respiratory exam: Normal lung sounds bilaterally. negative: Respiratory distress, Rhonchi, Stridor, Wheezes - Cardiovascular Cardiovascular Exam: Regular rate, Normal rhythm, Normal heart sounds - GI/Abdominal GI/Abdominal exam: Soft, Tenderness (TTP to the epigastric region on examination, no rebound, no guarding.). negative: Rebound, Rigid - Rectal Rectal exam: Deferred - exam: Deferred - Extremities Extremities exam: Normal inspection. negative: Pedal edema, Tenderness - Back Back exam: Denies: CVA tenderness (R), CVA tenderness (L) - Neurological Neurological exam: Alert, Normal gait, Oriented X3 - Psychiatric Psychiatric exam: Normal affect, Normal mood - Skin Skin exam: Normal color. negative: Abrasion Type of lesion: negative: abrasion Course Vital Signs 08/01/19 22:43 Temperature 97.9 F Pulse Rate [ 74 Left] Respiratory 18 Rate Blood Pressure 150/93 [Left Arm] Pulse Ox 98 - Reevaluation(s) Reevaluation #1: 08/01/19 23:29 Initial laboratory studies were reviewed and appear grossly unremarkable for an acute process. UA is pending at this time. Patient is going for CT imaging currently. Reevaluation #2: 08/01/19 23:58 Patient is back from CT imaging, reports that his pain symptoms are improved however pain is still present. Patient is providing UA sample at this time. Reevaluation #3: 08/02/19 00:19 CT Abdomen and Pelvis: Mildly prominent gallbladder with possible tiny stones Multiple renal lesions which are likely cysts, consider non-emergent follow-up for exclusion of solid lesions Reevaluation #4: 08/02/19 00:28 Patient was reassessed and updated on CT imaging results, reports that his pain symtpoms are 6/10. Following discussion with the patient, I did recommend transfer for GI consul tation and possible EGD for his continued epigastric abdominal pain symptoms. Following discussion with the patient regarding transfer, patient reports that he wishes to leave [place] at this time. Risks of , permanent impairment, or worsening of his current condition were discussed as well as the benefit of transfer and further evaluation of his presenting symptoms. Patient wishes to leave AMA despite these risks. Based on my examination, the patient is alert, oriented, and answers all questions appropriately. Patient appears to have the capacity to make rational decisions based on my examination. Patients was present for the duration of our discussion as well. Patient was encouraged to return to the ED immediately if they change their mind about treatment and want to be re-evaluated. Reevaluation #5: 08/02/19 00:46 EKG: NSR 64 Normal axis, normal intervals Isolated T wave inversion III, no acute changes are present. Medical Decision Making - Lab Data Result diagrams: 08/01/19 22:53 08/01/19 22:53 Disposition Disposition: Discharge Clinical Impression: Epigastric abdominal pain Disposition: Against Medical Advice Condition: (2) Stable Instructions: Abdominal Pain (ED) Additional Instructions: Return to ED if your symptoms worsen or if you have any concerns. Follow-up with your family doctor in 1-3 days as directed. Forms: Patient Portal Access Time of Disposition: 00:32 Quality - Quality Measures Quality Measures: N/A - Blood Pressure Screening Does Patient Have Any of the Following: No Blood Pressure Classification: Pre-Hypertensive BP Reading Systolic Measurement: 139 Diastolic Measurement: 82 Screening for High Blood Pressure: < Pre-Hypertensive BP, F/U Documented > [G8950] Pre-Hypertensive Follow-up Interventions: Referral to alternative/primary care provider.
[2019-08-01] MEDS ORDERED: 0.9 % SODIUM CHLORIDE 1000ML 1,000 ML IV SCH (23:00)
[2019-08-01 23:09] LABS: ABSOLUTE NEUTROPHIL COUNT 5.11; BASO % 0.3 % (0-6); EOS % 2.7 % (0-6); GRAN % 64.7 % (47-80); HEMATOCRIT 48.1 % (42.0-52.0); HEMOGLOBIN 15.6 gm/dl (14.0-18.0); LYMPH % 25.3 % (16-45); MEAN CELL VOLUME 88.3 fl (81-97); MEAN CORPUSCULAR HEMOGLOBIN 28.6 pg (27-33); MEAN CORPUSCULAR HGB CONC 32.4 g/dl (32-36); MEAN PLATELET VOLUME 9.5 fl (7.4-10.4); PLATELET COUNT 254 K/uL (130-400); RED BLOOD COUNT 5.45 M/uL (4.40-5.70); RED CELL DISTRIBUTION WIDTH 15.5 % (11.5-14.5); WHITE BLOOD COUNT W/O DIFF 7.9 K/uL (4.2-12.2)
[2019-08-01 23:21] LABS: BILIRUBIN,TOTAL 0.3 mg/dL (0.2-1.0); CREATININE 1.4 mg/dL (0.7-1.2)
[2019-08-01 23:22] LABS: TOTAL PROTEIN 7.1 g/dL (6.6-8.7)
[2019-08-01 23:27] LABS: ALB/GLOB RATIO 1.7 (1.1-1.8); ALBUMIN 4.5 g/dL (4.0-5.0)
[2019-08-01] MEDS ORDERED: HYDROMORPHONE HCL 2 MG/ML VIAL IVP ONE (23:32)
[2019-08-02] MEDS ORDERED: 0.9 % SODIUM CHLORIDE 1000ML 500 ML IV SCH (00:15)
--- NOTE | 2019-08-02 00:17 | CT SCAN REPORT ---
EXAMINATION: CT Abdomen and Pelvis without IV Contrast EXAM DATE: 08/02/2019 12:00 AM TECHNIQUE: Standard protocol CT imaging of the abdomen and pelvis was performed without intravenous c ontrast. INDICATION: pain COMPARISON: 01/18/2018 ENCOUNTER: Not applicable CT ABDOMEN AND PELVIS FINDINGS: Lung Bases: Included extent of the lung bases are clear. Hepatobiliary: The liver has a normal size with a smooth surface. The gallbladder appears mildly dis tended and there may be a couple of tiny gallstones seen near the gallbladder neck. No obvious perich olecystic inflammatory changes or fluid are seen. Pancreas: The pancreas is normal. Spleen: The spleen is not enlarged. Adrenals: The adrenal glands are normal. Kidneys, Ureters, & Bladder: Both kidneys have a normal size and morphology. There is no hydronephro sis. There are couple of scattered renal lesions most of which may be related to cysts but some are i ndeterminant and if further characterization is needed consider follow-up with nonemergent ultrasound or contrast-enhanced CT. Both ureters have a normal course and caliber and the urinary bladder a nor mal morphology and uniform wall thickness. No ureteral or bladder calculi are identified. Gastrointestinal: There is a small hiatal hernia. The stomach and small bowel appears otherwise unrem arkable with no obstruction or inflammation. The large bowel is within normal limits. Reproductive Organs: The prostate is enlarged. Lymphatic System: There is no adenopathy within the abdomen or pelvis. Vasculature: Normal caliber abdominal aorta with mild atherosclerotic disease. Peritoneum: No free fluid, free air, or inflammation Abdominal wall & Musculoskeletal: No suspicious bone lesions. Assessment of the solid organs, soft tissues, and vascular structures is overall limited on noncontra st imaging, IMPRESSION: 1. Mildly prominent gallbladder with possible tiny gallstones. Please correlate clinically. 2. Multiple renal lesions many of which are probably cysts but some of these appear indeterminant on this noncontrast study. If further characterization is needed to rule out a solid lesion nonemergent follow-up with ultrasound and/or contrast-enhanced CT may be warranted. 3. Additional findings, as above. Dictated by: Tanya Heard MD on 08/02/2019 12:01 AM. .
== END 2019-08-02 00:58 | disposition left against medical advice (07) ==
LOC: ER 22:37
DX: R10.13 Epigastric pain (principal); R11.0 Nausea; I10 Essential (primary) hypertension; J44.9 Chronic obstructive pulmonary disease, unspecified; Z87.891 Personal history of nicotine dependence
CPT/HCPCS: 74176; 80053; 83690; 85025; 93005; 93010; 96374; 96375; 99284; J2405; J7030